=== PATIENT | female | born 1990 | race African-American/Black ===

== ENCOUNTER 2018-05-13 22:08 | Emergency (ER) | payer MEDICAID ==
[~2018-05-13] VITALS: Ht 157.5 cm; Wt 54.4 kg
[~2018-05-13 22:08] MED LIST: IBUPROFEN600 MG PO; PEPCID COMPLET1 EACH PO
[2018-05-13 22:40] VITALS: BP 119/73
--- NOTE | 2018-05-13 22:40 | NUR ---
ED Nurse Note: Pt arrived ED from Home, c/o right arm pain 10/10 due to fell and hit an object at home today. Pt is A/O X4. Vital signs stable at this time, waitng for orders.
[2018-05-13] MEDS ORDERED: HYDROcodone/Acetamin 5/325 tab PO ONE (22:45)
--- NOTE | 2018-05-13 22:59 | NUR ---
ED Nurse Note: Pain meds given as ordered.
--- NOTE | 2018-05-13 23:10 | NUR ---
ED Nurse Note: X-ray done at bed side.
--- NOTE | 2018-05-13 23:30 | Diagnostic Imaging Report ---
EXAM: XR Left Wrist Complete, 3 or More Views CLINICAL HISTORY: PAIN TECHNIQUE: Frontal, lateral and oblique views of the left wrist. COMPARISON: No relevant prior studies available. FINDINGS: Bones/joints: No acute fracture. Soft tissues: No radiodense foreign body. IMPRESSION: No acute fracture.
--- NOTE | 2018-05-13 23:31 | Diagnostic Imaging Report ---
EXAM: XR Right Wrist Complete, 3 or More Views CLINICAL HISTORY: PAIN TECHNIQUE: Frontal, lateral and oblique views of the right wrist. COMPARISON: No relevant prior studies available. FINDINGS: Bones/joints: No acute fracture. Soft tissues: No radiodense foreign body. IMPRESSION: No acute fracture.
--- NOTE | 2018-05-13 23:31 | Diagnostic Imaging Report ---
EXAM: XR Right Forearm, 2 Views CLINICAL HISTORY: PAIN TECHNIQUE: Frontal and lateral views of the right forearm. COMPARISON: No relevant prior studies available. FINDINGS: Bones/joints: No acute fracture. Soft tissues: No radiodense foreign body. IMPRESSION: No acute fracture.
[2018-05-13] MEDS ORDERED: Morphine Sulfate 2mg/ml Inj(IV/IM USE ONLY) IM ONE (23:45)
[2018-05-13] MEDS ORDERED: IBUPROFEN600 MG ORAL (23:53)
[2018-05-13] MEDS ORDERED: NORCO 5-325 TA1 EACH ORAL (23:53)
[2018-05-14 00:12] VITALS: BP 115/72
--- NOTE | 2018-05-14 00:12 | NUR ---
ER DISCHARGE NOTE: Patient is cleared to be discharged per Dr. Morrissey. X-ray done, no FX was found at this time, Sling applied to both right and left arms. Pt is A/Ox4 on room air with stable vital signs, pt was given dc and prescription instructions, pt was able to verbalize understanding, pt id band removed. pt is able to ambulate with steady gait and pt took all belongings. Accompanied by her friend.
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
== END 2018-05-14 00:12 | disposition home or self-care (01) ==
LOC: EMR 22:59
DX: S50.11XA Contusion of right forearm, initial encounter (principal); M25.532 Pain in left wrist; M25.531 Pain in right wrist; Y04.0XXA Assault by unarmed brawl or fight, initial encounter; Y92.89 Other specified places as the place of occurrence of the external cause
CPT/HCPCS: 29125; 73090; 73110; 96372; 99284; J2270